=== PATIENT | female | born 1965 | race Caucasian/White ===

== ENCOUNTER 2018-01-29 10:04 | Emergency (ER) | payer SELFPAY ==
[~2018-01-29] VITALS: Ht 167.6 cm; Wt 72.7 kg
[2018-01-29 10:05] VITALS: Ht 167.6 cm; Wt 72.7 kg
[2018-01-29] MEDS ORDERED: CYCLOBENZAPRINE10 MG PO (12:00)
[2018-01-29 12:52] VITALS: BP 121/86
== END 2018-01-29 12:53 | disposition home or self-care (01) ==
LOC: D.ER 10:04
DX: S93.401A Sprain of unspecified ligament of right ankle, initial encounter (principal); V43.62XA Car passenger injured in collision with other type car in traffic accident, initial encounter; Y93.89 Activity, other specified; Y92.410 Unspecified street and highway as the place of occurrence of the external cause; S16.1XXA Strain of muscle, fascia and tendon at neck level, initial encounter; S29.012A Strain of muscle and tendon of back wall of thorax, initial encounter